=== PATIENT | male | born 1985 | race Caucasian/White ===

== ENCOUNTER 2017-06-02 05:48 | Emergency (ER) | payer OTHER, BC ==
[~2017-06-02] VITALS: Ht 188 cm; Wt 98.8 kg
[2017-06-02 05:59] VITALS: BP 142/71; PULSE 75; RESP 22; TEMP 99.6; O2SAT 98
[2017-06-02 06:09] VITALS: BP 142/71; PULSE 75; RESP 16; TEMP 99.6; O2SAT 98
[2017-06-02] MEDS ORDERED: AMPH1TAB29 PO (06:15)
--- NOTE | 2017-06-02 06:53 | PD ---
HPI Chief Complaint: Musculoskeletal Complaint Time Seen by Provider: 06:31 Travel History International Travel<30 days: No Contact w/Intl Traveler<30days: No Traveled to known affect area: No History of Present Illness HPI The patient is a 31-year-old male that complains of generalized myalgias, nausea , vomiting, fever and global headache of gradual onset. 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 He denies any skin rash. The patient only works in [place] and has only contracted takes in [place]. Most ticks are tiny, seedlike ticks. He states he knows what blacklegged ticks are and the ticks he encounters are not those. PFSH Past Medical History ADHD: Yes Patient Takes Glucophage: No Influenza Vaccination: Yes ?: Not Past Surgical History Tonsillectomy: Yes Social History Alcohol Use: Yes (RARELY) Tobacco Use: Yes Substance Use: No Allergies-Medications (Allergen,Severity, Reaction): Coded Allergies: No Known Allergies (Unverified , 06/02/17) Reported Meds & Prescriptions Reported Meds & Active Scripts Active Reported Adderall (Amphetamine-Dextroamphetamine) 5 Mg Tab 5 Mg PO DAILY Avoid late evening doses. Space doses at least 4 to 6 hours if more than once/day dosing. Review of Systems Except as stated in HPI: all other systems reviewed are Neg Physical Exam Narrative GENERAL: The patient is alert, oriented 3 and moderate amount of distress with his headache and myalgias. His vital signs show temperature 99.6 but otherwise normal. SKIN: Focused skin assessment warm/dry. There is a small tick bite on the left forearm with a tiny amount of redness from scratching the area and not the rash of Lyme disease. HEAD: Atraumatic. Normocephalic. EYES: Pupils equal and round. No scleral icterus. No injection or drainage. ENT: No nasal bleeding or discharge. Mucous membranes pink and moist. NECK: Trachea midline. No JVD. There is no meningismus present. No enlarged lymph nodes are present on the anterior cervical chain but there is tenderness of the lymph nodes in this area. CARDIOVASCULAR: Regular rate and rhythm. No murmur appreciated. RESPIRATORY: No accessory muscle use. Clear to auscultation. Breath sounds equal bilaterally. GASTROINTESTINAL: Abdomen soft, non-tender, nondistended. Hepatic and splenic margins not palpable. No guarding or rebound is present. MUSCULOSKELETAL: No obvious deformities. No clubbing. No cyanosis. No edema. NEUROLOGICAL: Awake and alert. No obvious cranial nerve deficits. Motor grossly within normal limits. Normal speech. PSYCHIATRIC: Appropriate mood and affect; insight and judgment normal. Data Data Last Documented VS Vital Signs Date Time Temp Pulse Resp B/P (MAP) Pulse Ox O2 Delivery O2 Flow Rate FiO2 06/02/17 06:52 16 06/02/17 06:09 99.6 75 142/71 (94) 98 Orders Orders Lyme Disease Pcr (06/02/17 06:31) Complete Blood Count With Diff (06/02/17 06:31) Comprehensive Metabolic Panel (06/02/17 06:31) Urinalysis - C+S If Indicated (06/02/17 06:31) Labs Laboratory Tests Test 06/02/17 06:41 06/02/17 06:50 White Blood Count 4.6 TH/MM3 Red Blood Count 4.89 MIL/MM3 Hemoglobin 14.9 GM/DL Hematocrit 43.7 % Mean Corpuscular Volume 89.3 FL Mean Corpuscular Hemoglobin 30.4 PG Mean Corpuscular Hemoglobin Concent 34.1 % Red Cell Distribution Width 12.3 % Platelet Count 159 TH/MM3 Mean Platelet Volume 9.0 FL Neutrophils (%) (Auto) 52.8 % Lymphocytes (%) (Auto) 25.6 % Monocytes (%) (Auto) 17.1 % Eosinophils (%) (Auto) 3.8 % Basophils (%) (Auto) 0.7 % Neutrophils # (Auto) 2.4 TH/MM3 Lymphocytes # (Auto) 1.2 TH/MM3 Monocytes # (Auto) 0.8 TH/MM3 Eosinophils # (Auto) 0.2 TH/MM3 Basophils # (Auto) 0.0 TH/MM3 CBC Comment DIFF FINAL Differential Comment Blood Urea Nitrogen 12 MG/DL Creatinine 1.20 MG/DL Random Glucose 97 MG/DL Albumin 3.7 GM/DL Calcium Level 8.8 MG/DL Aspartate Amino Transf (AST/SGOT) 31 U/L Alanine Aminotransferase (ALT/SGPT) 46 U/L Sodium Level 136 MEQ/L Potassium Level 4.1 MEQ/L Chloride Level 103 MEQ/L Carbon Dioxide Level 26.9 MEQ/L Anion Gap 6 MEQ/L Estimat Glomerular Filtration Rate 71 ML/MIN Urine pH 6.0 Urine Protein NEG mg/dL Urine Glucose (UA) NEG mg/dL Urine Ketones NEG mg/dL Urine Occult Blood LARGE Urine Nitrite NEG Urine Bilirubin NEG Urine Leukocyte Esterase NEG MDM Medical Decision Making Medical Screen Exam Complete: Yes Emergency Medical Condition: Yes Medical Record Reviewed: Yes Differential Diagnosis Tickborne illnesses, viral syndrome, electrolyte disorder Narrative Course Anaplasmosis, powassan disease babesiosis,TBRF, RMSFand Borrelia are unlikely to be the cause of his problems because of the location limited to [place]. [place] viruses and [place] is possible but [place] tick fever is unlikely. Ehrlichiosis is possible and Lyme disease is possible. [place] virus also as possible. Rickets he is also possible It is now 0712 and the patient is transferred to Dr. Maddox. Femi Glasgow MD Jun 02, 2017 06:53
[2017-06-02 07:03] LABS: CHLORIDE 103 MEQ/L (98-107); POTASSIUM 4.1 MEQ/L (3.5-5.1); SODIUM (NA) 136 MEQ/L (136-145)
[2017-06-02 07:04] LABS: BLOOD, URINE LARGE (NEG); GLUCOSE,URINE NEG (NEG); KETONE, URINE NEG (NEG); NITRITE,URINE NEG (NEG)
[2017-06-02 07:07] LABS: ANION GAP 6 MEQ/L (5-15); BICARBONATE 26.9 MEQ/L (21.0-32.0); BLOOD UREA NITROGEN 12 MG/DL (7-18)
[2017-06-02 07:10] LABS: ALT (GPT) 46 U/L (12-78); AST (GOT) 31 U/L (15-37); AUTOMATED NEUTROPHIL # 2.4 TH/MM3 (1.8-7.7); BASOPHIL % 0.7 % (0.0-2.0); EOSINOPHIL # 0.2 TH/MM3 (0-0.4); EOSINOPHIL % 3.8 % (0.0-4.0); GLOMERULAR FILTRATION RATE 71 ML/MIN (>89); HEMATOCRIT 43.7 % (39.0-51.0); HEMO FLAGS DIFF FINAL; LYMPH % 25.6 % (9.0-44.0); LYMPHOCYTE # 1.2 TH/MM3 (1.0-4.8); MEAN CELL VOLUME 89.3 FL (80.0-100.0); MEAN CORPUSCULAR HEMOGLOBIN 30.4 PG (27.0-34.0); MEAN CORPUSCULAR HGB CONC 34.1 % (32.0-36.0); MONO % 17.1 % (0.0-8.0); NEUT % 52.8 % (16.0-70.0); PLATELET COUNT 159 TH/MM3 (150-450); RED BLOOD COUNT 4.89 MIL/MM3 (4.50-5.90); RED CELL DISTRIBUTION WIDTH 12.3 % (11.6-17.2); WHITE BLOOD COUNT 4.6 TH/MM3 (4.0-11.0)
[2017-06-02 07:11] LABS: URINE COLOR YELLOW (YELLW/STRAW)
[2017-06-02 07:12] LABS: COMMENT (UR) CULT NOT INDICATED; CULTURE IF INDICATED CULT NOT INDICATED; RBC, URINE 15-19 /hpf (0-3)
[2017-06-02 07:12] LABS: TOTAL BILIRUBIN ADULT 0.4 MG/DL (0.2-1.0)
[2017-06-02 07:13] LABS: ALKALINE PHOSPHATASE 72 U/L (45-117)
[2017-06-02] MEDS ORDERED: IBUPROFEN 600 MG TAB PO ONE (07:45)
[2017-06-02] MEDS ORDERED: DOXYCYCLINE HYCLATE 100 MG TAB PO ONE (07:45)
[2017-06-02] MEDS ORDERED: DOXY100C PO (07:54)
--- NOTE | 2017-06-02 07:54 | PD ---
Physical Exam Date Seen by Provider: Jun 02, 2017 Time Seen by Provider: 07:00 Narrative Patient signed out to me by Dr. Glasgow at 7 AM, please see Dr. Glasgow's notes for further details. 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 He apparently has had tick exposure. There is concern here for possible tickborne illness. 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 Considering the exposure and the symptoms, as per discussion with Dr. Glasgow, my plan would be to treat the patient with doxycycline and have her follow-up with primary care physician. Lyme titers have been sent. Return for any worsening in symptoms, pain, fevers, or new symptoms as needed. The plan was discussed with the patient he states understanding. Data Data Last Documented VS Vital Signs Date Time Temp Pulse Resp B/P (MAP) Pulse Ox O2 Delivery O2 Flow Rate FiO2 06/02/17 06:52 16 06/02/17 06:09 99.6 75 142/71 (94) 98 Orders Orders Lyme Disease Pcr (06/02/17 06:31) Complete Blood Count With Diff (06/02/17 06:31) Comprehensive Metabolic Panel (06/02/17 06:31) Urinalysis - C+S If Indicated (06/02/17 06:31) Ibuprofen (Motrin) (06/02/17 07:45) Doxycycline (Vibratab) (06/02/17 07:45) Labs Laboratory Tests Test 06/02/17 06:41 06/02/17 06:50 White Blood Count 4.6 TH/MM3 Red Blood Count 4.89 MIL/MM3 Hemoglobin 14.9 GM/DL Hematocrit 43.7 % Mean Corpuscular Volume 89.3 FL Mean Corpuscular Hemoglobin 30.4 PG Mean Corpuscular Hemoglobin Concent 34.1 % Red Cell Distribution Width 12.3 % Platelet Count 159 TH/MM3 Mean Platelet Volume 9.0 FL Neutrophils (%) (Auto) 52.8 % Lymphocytes (%) (Auto) 25.6 % Monocytes (%) (Auto) 17.1 % Eosinophils (%) (Auto) 3.8 % Basophils (%) (Auto) 0.7 % Neutrophils # (Auto) 2.4 TH/MM3 Lymphocytes # (Auto) 1.2 TH/MM3 Monocytes # (Auto) 0.8 TH/MM3 Eosinophils # (Auto) 0.2 TH/MM3 Basophils # (Auto) 0.0 TH/MM3 CBC Comment DIFF FINAL Differential Comment Blood Urea Nitrogen 12 MG/DL Creatinine 1.20 MG/DL Random Glucose 97 MG/DL Total Protein 7.6 GM/DL Albumin 3.7 GM/DL Calcium Level 8.8 MG/DL Alkaline Phosphatase 72 U/L Aspartate Amino Transf (AST/SGOT) 31 U/L Alanine Aminotransferase (ALT/SGPT) 46 U/L Total Bilirubin 0.4 MG/DL Sodium Level 136 MEQ/L Potassium Level 4.1 MEQ/L Chloride Level 103 MEQ/L Carbon Dioxide Level 26.9 MEQ/L Anion Gap 6 MEQ/L Estimat Glomerular Filtration Rate 71 ML/MIN Urine Color YELLOW Urine Turbidity CLEAR Urine pH 6.0 Urine Specific [place] 1.026 Urine Protein NEG mg/dL Urine Glucose (UA) NEG mg/dL Urine Ketones NEG mg/dL Urine Occult Blood LARGE Urine Nitrite NEG Urine Bilirubin NEG Urine Leukocyte Esterase NEG Urine RBC 15-19 /hpf Microscopic Urinalysis Comment CULT NOT INDICATED MDM Medical Record Reviewed: Yes Supervised Visit with SHALOM: No Diagnosis Primary Impression: Tick-borne disease Med/Other Pt SpecificInfo: Prescription(s) given Scripts Doxycycline Hyclate (Doxycycline Hyclate) 100 Mg Cap 100 MG PO BID for Infection, #28 CAP 0 Refills Prov: Chandan Zhou MD 06/02/17 Disposition: 01 DISCHARGE HOME Condition: Stable Chandan Zhou MD Jun 02, 2017 07:54
[2017-06-02] MEDS ORDERED: IBUP-232 PO (07:55)
[2017-06-02 08:00] VITALS: BP 113/58
== END 2017-06-02 08:10 | disposition home or self-care (01) ==
LOC: PHED 05:48
DX: S50.862A Insect bite (nonvenomous) of left forearm, initial encounter (principal); W57.XXXA Bitten or stung by nonvenomous insect and other nonvenomous arthropods, initial encounter; Y92.830 Public park as the place of occurrence of the external cause; Y99.0 Civilian activity done for income or pay
CPT/HCPCS: 80053; 81001; 85025; 87801; 99283